=== PATIENT | male | born 1940 | race Caucasian/White ===

== ENCOUNTER → 2023-06-24 11:42 | Outpatient (REF) | payer MEDICARE, BC, SELFPAY ==
[2023-06-24 12:35] LABS: % Basophils 0.7 % (0-2); % Lymphocytes 29.9 % (20.5-51.1); % Monocytes 7.9 % (1.7-9.3); % Neutrophils 58.5 % (42.2-75.2); Absolute Eosinophils 0.1 10^3/uL (0-0.7); Absolute Lymphocytes 1.3 10^3/uL (1.2-3.4); Absolute Monocytes 0.3 10^3/uL (0.1-0.6); Absolute Neutrophils 2.5 10^3/uL (1.4-6.5); Hematocrit 46.2 % (39.0-52.0); Hemoglobin 16.2 g/dL (13.0-18.0); Mean Corp Hgb Conc. 35.1 g/dL (33.0-37.0); Mean Corpuscular Hgb 32.8 pg (27.0-31.0); Mean Corpuscular Volume 93.5 fL (80.0-94.0); Mean Platelet Volume 11.6 fL (7.4-10.4); Nucleated Red Blood Cells % 0 % (-); Platelet Count 197 10^3/uL (130-400); Red Blood Cell Count 4.94 10^6/uL (4.70-6.10); Red Cell Dist. Width 11.8 % (11.5-14.5); White Blood Cell Count 4.3 10^3/uL (4.8-10.8)
[2023-06-24 13:01] LABS: ALT (SGPT) 17 U/L (0-50); AST (SGOT) 28 U/L (17-59); Albumin 3.9 g/dl (3.5-5.0); Alkaline Phosphatase 44 U/L (38-126); Blood Urea Nitrogen 21 mg/dl (9-20); Calcium 9.3 mg/dl (8.4-10.2); Carbon Dioxide 27 mmol/L (22-30); Chloride 104 mmol/L (98-107); Glucose 117 mg/dl (70-99); HDL Cholesterol 63 mg/dl; LDL Cholesterol, Calculated 92 mg/dl; Potassium 4.1 mmol/L (3.5-5.1); Sodium 140 mmol/L (135-145); Total Bilirubin 1.2 mg/dl (0.2-1.3); Total Cholesterol 166 mg/dl (50-199); Total Protein 6.3 g/dl (6.3-8.2); Triglyceride 59 mg/dl (10-149); Very Low Density Lipoprotein 11 mg/dl (0-30); eGFR > 60.00
[2023-06-24 13:35] LABS: PSA, Total - Diagnostic 6.74 ng/ml (0.0-4.0)
[2023-06-24 14:29] LABS: Glycohemoglobin (HgbA1c) 6.5 % (4.0-5.6)
== END ==
LOC: REG 11:42
PROVIDERS: ATTENDING PHYSICIAN Internal Medicine
DX: I10 Essential (primary) hypertension (principal); E78.2 Mixed hyperlipidemia; R73.9 Hyperglycemia, unspecified; R97.20 Elevated prostate specific antigen [PSA]
CPT/HCPCS: 36415; 80053; 80061; 83036; 84153; 85025

== ENCOUNTER → 2024-01-31 11:24 | Outpatient (REF) | payer MEDICARE, BC, SELFPAY ==
[2024-01-31 12:48] LABS: % Basophils 0.7 % (0-2); % Eosinophils 3.6 % (0-6); % Immature Granulocytes 0.2 % (0-0.5); % Monocytes 9.8 % (1.7-9.3); % Neutrophils 54.7 % (42.2-75.2); Absolute Eosinophils 0.2 10^3/uL (0-0.7); Absolute Lymphocytes 1.3 10^3/uL (1.2-3.4); Absolute Monocytes 0.4 10^3/uL (0.1-0.6); Absolute Neutrophils 2.3 10^3/uL (1.4-6.5); Hematocrit 46.1 % (39.0-52.0); Hemoglobin 16.1 g/dL (13.0-18.0); Mean Corp Hgb Conc. 34.9 g/dL (33.0-37.0); Mean Corpuscular Hgb 33.1 pg (27.0-31.0); Mean Corpuscular Volume 94.9 fL (80.0-94.0); Mean Platelet Volume 11.8 fL (7.4-10.4); Nucleated Red Blood Cells % 0 % (-); Platelet Count 152 10^3/uL (130-400); Red Blood Cell Count 4.86 10^6/uL (4.70-6.10); Red Cell Dist. Width 12.1 % (11.5-14.5); White Blood Cell Count 4.2 10^3/uL (4.8-10.8)
[2024-01-31 12:53] LABS: Urine Albumin Negative (Neg - Trace); Urine Bilirubin Negative (Negative); Urine Character Clear (Clear); Urine Color Yellow; Urine Glucose Negative (Negative); Urine Ketone Negative (Negative); Urine Leukocyte Negative (Negative); Urine Nitrite Negative (Negative); Urine Occult Blood Negative (Negative); Urine Urobilinogen Negative (Neg - 1+)
[2024-01-31 13:52] LABS: ALT (SGPT) 17 U/L (0-50); AST (SGOT) 28 U/L (17-59); Albumin 4.3 g/dl (3.5-5.0); Alkaline Phosphatase 47 U/L (38-126); Blood Urea Nitrogen 25 mg/dl (9-20); Calcium 9.4 mg/dl (8.4-10.2); Carbon Dioxide 28 mmol/L (22-30); Chloride 101 mmol/L (98-107); Glucose 98 mg/dl (70-99); HDL Cholesterol 69 mg/dl; LDL Cholesterol, Calculated 100 mg/dl; Potassium 4.3 mmol/L (3.5-5.1); Sodium 138 mmol/L (135-145); Total Cholesterol 183 mg/dl (50-199); Total Protein 6.5 g/dl (6.3-8.2); Triglyceride 74 mg/dl (10-149); Very Low Density Lipoprotein 14 mg/dl (0-30); eGFR > 60.00
[2024-01-31 14:23] LABS: PSA, Total - Screen 6.33 ng/ml (0.0-4.0); TSH Reflex To Free T4 1.65 uIU/ml (0.47-4.68)
[2024-01-31 14:27] LABS: Glycohemoglobin (HgbA1c) 5.7 % (4.0-5.6)
== END ==
LOC: REG 11:24
PROVIDERS: ATTENDING PHYSICIAN Internal Medicine
DX: I10 Essential (primary) hypertension (principal); R73.9 Hyperglycemia, unspecified; Z12.5 Encounter for screening for malignant neoplasm of prostate
CPT/HCPCS: 36415; 80053; 80061; 81003; 83036; 84443; 85025; G0103

== ENCOUNTER → 2024-07-31 12:27 | Outpatient (REF) | payer MEDICARE, BC, SELFPAY ==
[2024-07-31 14:40] LABS: ALT (SGPT) 20 U/L (0-50); AST (SGOT) 26 U/L (17-59); Albumin 4.9 g/dl (3.5-5.0); Alkaline Phosphatase 51 U/L (38-126); Blood Urea Nitrogen 32 mg/dl (9-20); Calcium 9.6 mg/dl (8.4-10.2); Carbon Dioxide 27 mmol/L (22-30); Chloride 105 mmol/L (98-107); Glucose 106 mg/dl (70-99); HDL Cholesterol 74 mg/dl; LDL Cholesterol, Calculated 100 mg/dl; Potassium 4.3 mmol/L (3.5-5.1); Sodium 142 mmol/L (135-145); Total Bilirubin 1.1 mg/dl (0.2-1.3); Total Cholesterol 188 mg/dl (50-199); Triglyceride 70 mg/dl (10-149); Very Low Density Lipoprotein 14 mg/dl (0-30); eGFR > 60.00
[2024-07-31 15:11] LABS: PSA, Total - Diagnostic 7.23 ng/ml (0.0-4.0)
[2024-08-01 09:26] LABS: Glycohemoglobin (HgbA1c) 5.7 % (4.0-5.6)
== END ==
LOC: REG 12:27
PROVIDERS: ATTENDING PHYSICIAN Internal Medicine
DX: R97.20 Elevated prostate specific antigen [PSA] (principal); I10 Essential (primary) hypertension; R73.9 Hyperglycemia, unspecified; E78.2 Mixed hyperlipidemia
CPT/HCPCS: 36415; 80053; 80061; 83036; 84153

== ENCOUNTER → 2025-02-08 10:43 | Outpatient (REF) | payer MEDICARE, BC, SELFPAY ==
[2025-02-08 11:55] LABS: Urine Character Clear (Clear)
[2025-02-08 12:10] LABS: ALT (SGPT) 28 U/L (0-50); AST (SGOT) 31 U/L (17-59); Albumin 4.7 g/dl (3.5-5.0); Alkaline Phosphatase 49 U/L (38-126); Blood Urea Nitrogen 26 mg/dl (9-20); Calcium 9.7 mg/dl (8.4-10.2); Carbon Dioxide 29 mmol/L (22-30); Chloride 106 mmol/L (98-107); Glucose 119 mg/dl (70-99); HDL Cholesterol 82 mg/dl; LDL Cholesterol, Calculated 101 mg/dl; Potassium 4.3 mmol/L (3.5-5.1); Sodium 139 mmol/L (135-145); Total Protein 7.3 g/dl (6.3-8.2); Very Low Density Lipoprotein 17 mg/dl (0-30); eGFR > 60.00
[2025-02-08 12:21] LABS: Glycohemoglobin (HgbA1c) 5.7 % (4.0-5.6)
[2025-02-08 12:29] LABS: Hematocrit 47.1 % (39.0-52.0); Hemoglobin 16.4 g/dL (13.0-18.0); Mean Corp Hgb Conc. 34.8 g/dL (33.0-37.0); Mean Corpuscular Volume 94.0 fL (80.0-94.0); Nucleated Red Blood Cells % 0 % (-); Platelet Count 170 10^3/uL (130-400); Red Cell Dist. Width 12.3 % (11.5-14.5)
[2025-02-08 12:47] LABS: PSA, Total - Screen 6.94 ng/ml (0.0-4.0)
[2025-02-08 14:20] LABS: Urine Red Blood Cell 0-2 /HPF (0-2); Urine Squamous Cell 0-2 /LPF (Few); Urine White Cell 0-2 /HPF (0-5)
== END ==
LOC: REG 10:43
PROVIDERS: ATTENDING PHYSICIAN Internal Medicine
DX: Z00.00 Encounter for general adult medical examination without abnormal findings (principal); I10 Essential (primary) hypertension; E78.2 Mixed hyperlipidemia; Z12.5 Encounter for screening for malignant neoplasm of prostate; R73.9 Hyperglycemia, unspecified
CPT/HCPCS: 36415; 80053; 80061; 81003; 81015; 83036; 84443; 85025; G0103